=== PATIENT | female | born 1935 | race Caucasian/White ===

== ENCOUNTER 2017-04-13 13:26 | Emergency (ER) | payer MEDICARE, BC ==
[2017-04-13 13:44] VITALS: BP 171/86
--- NOTE | 2017-04-15 15:42 | EDM.PDOC ---
Scribed by Galilea Osman 04/13/17 [id number] for Wero Pennington MD ED HPI GENERAL MEDICAL PROBLEM - General Chief Complaint: Neuro Symptoms/Deficits Stated Complaint: [id number] DIZZY Time Seen by Provider: 04/13/17 13:41 Source of Information: Reports: Patient, RN, RN Notes Reviewed History Limitations: Reports: No Limitations - History of Present Illness INITIAL COMMENTS - FREE TEXT/NARRATIVE: Arrives by private vehicle with complaint of onset of dizziness yesterday associated with a slight left headache or something in her left ear is not quite right. Patient describes she becomes acutely dizzy with the sensation that her balance is off with head motion/movement and then becomes nauseated when this occurs. On two occasions it has caused her to vomit. Otherwise she denies any nausea or vomiting. Reports good appetite. She has had no fever, chills or abdominal pain. Admits to a very mild and slight dry cough for the past one week. Denies any other symptoms. Location: Reports: Head Quality: Reports: Ache Severity: Moderate Improves with: Reports: None Worsens with: Reports: None Associated Symptoms: Reports: No Other Symptoms - Related Data Allergies Allergy/AdvReac Type Severity Reaction Status Date / Time No Known Allergies Allergy Verified 04/13/17 13:38 Home Meds: Home Meds . [No Known Home Meds] 04/13/17 [History] Past Medical History Musculoskeletal History: Reports: Arthritis Social & Family History - Family History Family Medical History: Noncontributory - Tobacco Use Smoking Status *Q: Never Smoker - Recreational Drug Use Recreational Drug Use: No ED ROS GENERAL - Review of Systems Review Of Systems: ROS reveals no pertinent complaints other than HPI. ED EXAM, NEURO - Physical Exam Exam: See Below Exam Limited By: No Limitations General Appearance: Alert, WD/WN, No Apparent Distress Eye Exam: Left Eye: Other (later gaze nystagmus. ) Ears: Other (Left TM slightly bulging with clear fluid effusion. Right TM retracted otherwise normal. ) Nose: Normal Inspection, Normal Mucosa, No Blood Throat/Mouth: Normal Inspection, Normal Lips, Normal Teeth, Normal Gums, Normal Oropharynx, Normal Voice, No Airway Compromise Head Exam: Atraumatic Neck: Normal Inspection, Supple, Non-Tender, Full Range of Motion Respiratory/Chest: No Respiratory Distress, Lungs Clear, Normal Breath Sounds, No Accessory Muscle Use, Chest Non-Tender Cardiovascular: Normal Peripheral Pulses, Regular Rate, Rhythm, No Edema, No Gallop, No JVD, No Murmur, No Rub GI/Abdominal: Normal Bowel Sounds, Soft, Non-Tender, No Organomegaly, No Distention, No Abnormal Bruit, No Mass (Female) Exam: Deferred Rectal (Female) Exam: Deferred Neurological: Alert, Normal Mood/Affect, Normal Dorsiflexion, CN II-XII Intact, Normal Plantar Flexion, Normal Gait, Normal Reflexes, No Motor/Sensory Deficits , Oriented x 3 Back Exam: Normal Inspection, Full Range of Motion, NT Psychiatric: Normal Affect, Normal Mood Skin Exam: Warm, Dry, Intact, Normal Color, No Rash EKG INTERPRETATION EKG Date: 04/13/17 Time: 13:40 Rhythm: Other (sinus rhythm) Rate (Beats/Min): 64 Erwin: LAD-Left Erwin Deviation (probable left ventricular hypertrophy) P-Wave: Present QRS: Normal ST-T: Normal QT: Normal Course - Vital Signs Last Recorded V/S: Last Vital Signs Temp 36.2 C 04/13/17 13:38 Pulse 68 04/13/17 13:38 Resp 16 04/13/17 13:38 BP 171/86 H 04/13/17 13:38 Pulse Ox 97 04/13/17 13:38 Orthostatic Blood Pressure [ 128/82 Standing] Orthostatic Blood Pressure [ 131/92 Sitting] Orthostatic Blood Pressure [ 144/66 Supine] - Orders/Labs/Meds Orders: Active Orders 24 hr Category Date Time Status EKG Documentation Completion [RC] URGENT Care 04/13/17 13:48 Active Labs: Laboratory Tests 04/13/17 Range/Units 13:41 Urine Color Yellow (YELLOW) Urine Appearance Slightly cloudy (CLEAR) Urine pH 5.5 (5.0-9.0) Ur Specific [place] 1.020 (1.005-1.030) Urine Protein Negative (NEGATIVE) Urine Glucose (UA) Negative (NEGATIVE) Urine Ketones Trace H (NEGATIVE) Urine Occult Blood Moderate H (NEGATIVE) Urine Nitrite Negative (NEGATIVE) Urine Bilirubin Negative (NEGATIVE) Urine Urobilinogen 0.2 (0.2-1.0) mg/dL Ur Leukocyte Esterase Negative (NEGATIVE) Urine RBC 5-10 H /HPF Urine WBC 0-5 (0-5/HPF) /HPF Ur Epithelial Cells Few /HPF Urine Bacteria Rare (0-FEW/HPF) /HPF Urine Mucus Rare /LPF Departure - Departure Time of Disposition: 14:18 Disposition: Home, Self-Care 01 Condition: Good Clinical Impression: Vertigo - Discharge Information Instructions: Vertigo, [id number] Forms: ED Department Discharge Additional Instructions: RX: Decadron 4mg. RX: Meclizine 25mg *DO NOT DRIVE WHILE UNDER THE INFLUENC OF THIS MEDICATION Follow up in clinic this week if not improved. Return to ER if worse at any time. I have read and agree with the documentation that has been completed regarding this visit. By signing this record, I attest that the documentation was completed in my physical presence and is an accurate record of the encounter.
--- NOTE | 2017-05-05 09:45 | EKG ---
04/13/2017- TRAM PAREDES - This is a standard 12-lead EKG showing ventricular rate of 64 beats per minute. Normal sinus rhythm. No significant ST-T changes. [facility] /[id number]
== END 2017-04-13 14:30 | disposition home or self-care (01) ==
LOC: DL.ED 13:26
DX: R42 Dizziness and giddiness (principal); M19.90 Unspecified osteoarthritis, unspecified site
CPT/HCPCS: 81001; 93005; 93010; 99284